=== PATIENT | female | born 1960 | race Two or more races ===

== ENCOUNTER 2025-07-25 10:13 | Outpatient (CLI) | payer OTHER | END 2025-07-25 10:14 | disposition home or self-care (01) | LOC: NUCLEAR 10:13 | DX: M81.0 Age-related osteoporosis without current pathological fracture (principal); M05.79 Rheumatoid arthritis with rheumatoid factor of multiple sites without organ or systems involvement ==

== ENCOUNTER 2025-07-25 10:19 | Outpatient (CLI) | payer OTHER | END 2025-07-25 10:28 | disposition home or self-care (01) | LOC: RAD 10:19 | DX: M41.35 Thoracogenic scoliosis, thoracolumbar region (principal); M48.05 Spinal stenosis, thoracolumbar region; M51.35 Other intervertebral disc degeneration, thoracolumbar region; K29.50 Unspecified chronic gastritis without bleeding; K21.9 Gastro-esophageal reflux disease without esophagitis; M50.90 Cervical disc disorder, unspecified, unspecified cervical region; M06.4 Inflammatory polyarthropathy; L40.8 Other psoriasis; L40.59 Other psoriatic arthropathy; M67.479 Ganglion, unspecified ankle and foot ==